=== PATIENT | female | born 1955 | race Caucasian/White ===

== ENCOUNTER 2018-06-07 15:15 | Outpatient (RCR) | payer OTHER, SELFPAY ==
--- NOTE | 2018-04-26 16:00 | PT.OIE ---
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) Stiffness of right shoulder, not elsewhere classified (04/26/18) Weakness (04/26/18) Provider Visit Care Team Role Provider Type Riya Butt DO Attending Provider Physician Primary Care Provider Specialty: Family Practice Address: [address] [place] [address], [id number] Email: [email or web address] Physical Therapy Initial Evaluation PT-OP-A Visit Information Start: 04/26/18 15:34 Freq: Status: Active Protocol: Document 04/26/18 13:45 DCW (Rec: 04/26/18 15:57 DCW [id number]) Out-Patient Physical Therapy Visit Information Visit Information Visit Type Initial Evaluation Visit Start Time 13:45 Visit Stop Time 14:30 Total Visit Minutes 45 Visit Number 1 Number of WEB FEEDER Visits 0 Evaluation Information Evaluation Date 04/26/18 PT-OP-B Current Condition Start: 04/26/18 15:34 Freq: Status: Active Protocol: Document 04/26/18 13:45 DCW (Rec: 04/26/18 15:57 DCW [id number]) Current Condition History of Current Condition Onset Date 03/08/18 Current Complaints Right UE weakness and stiffness secondary to shingles History of Current Condition Pt was diagnosed with shingles on 03/08/18. She began experiencing pain down her right arm, which was followed by weakness and immobility. Her symptoms gradually improved, and her nerve pain has gotten to the point where she is beginning to wean off of her gabapentin. She currently still has significantly limited ROM and strength in her right shoulder , and has difficulty with clinical manager , opening jars, raising her arm over her head, or lifting anything. Treatment Goals Patient/Caregiver Goals Pt goal is to improve her right arm strength and mobility Prior Functional Status Baseline Function- ADL's Independent Baseline Function- Mobility Independent Baseline Function- Other WNL Current Functional Impairments (Reported) Functional Limitations- ADL's Unable to lift objects to chest height Unable to open jars Unable to lift arm to her hair PT-OP-C Subjective Start: 04/26/18 15:34 Freq: Status: Active Protocol: Document 04/26/18 13:45 DCW (Rec: 04/26/18 15:57 DCW [id number]) Patient Questionnaires Quick Dash- Upper Extremity Quick Dash UE Score 50% Quick Dash UE Impairment 40 to 59% Impaired (Score 40- 59) OP-PT Pain Assessment Pain Assessment Grid Paper Pain Assessment Grid Completed Yes Location Right Arm Pain Location Details Entire length of arm Intensity 3 Scale Used Numeric (1 - 10) Description Dull Shooting Frequency Constant Home Pain Medication Use Pain Medications Used Yes: Gabapentin PT-OP-E Functional Tests Start: 04/26/18 15:57 Freq: Status: Active Protocol: Document 04/26/18 13:45 DCW (Rec: 04/26/18 15:59 MTW [id number]) Functional Tests Apley's Scratch Test Action 1: The subject is instructed to touch the opposite shoulder with his/her hand. This motion checks Glenohumeral adduction, internal rotation , horizontal adduction and scapular protraction Action 2: The subject is instructed to place his/her arm overhead and reach behind the neck to touch his/her upper back. This motion checks Glenohumeral abduction, external rotation and scapular upward rotation and elevation. Action 3: The subject puts his/her hand on the lower back and reaches upward as far as possible. This motion checks glenohumeral adduction, internal rotation and scapular retraction with downward rotation Action 1- Right Reach to lateral opposite shoulder Action 2- Right Reach to C7 Action 3- Right Reach to L4 PT-OP-K Range of Motion Start: 04/26/18 15:34 Freq: Status: Active Protocol: Document 04/26/18 13:45 DCW (Rec: 04/26/18 15:57 DCW [id number]) Shoulder Goniometric Range of Motion Shoulder Measured in Degrees Right Passive Shoulder ROM WFL No Testing Position Prone Flexion 170 Abduction 150 Right Active Shoulder ROM WFL No Testing Position Sitting Flexion 42 Abduction 55 Left Active Shoulder ROM WFL Yes Testing Position Sitting Shoulder ROM Limitations Shoulder ROM Limitations Muscle Weakness Elbow/Forearm Range of Motion Elbow/Forearm Measured in Degrees Right Active Elbow/Forearm ROM WFL Yes PT-OP-M Strength Start: 04/26/18 15:34 Freq: Status: Active Protocol: Document 04/26/18 13:45 DCW (Rec: 04/26/18 15:57 DCW [id number]) Shoulder Strength Shoulder Manual Muscle Testing Left Reason Not Measured WFL Right Flexion 2 Poor Abduction (C5) 2 Poor External Rotation 3 Fair Internal Rotation 3+ Fair+ Elbow/Forearm Strength Elbow and Forearm Manual Muscle Testing Left Reason Not Measured WFL Right Flexion (C6) 4 Good Pronation 4- Good- Hand Functional Support Analyst/Pinch Strength Hand Dominance Hand Dominance Right Hand Strength Right Functional Support Analyst (lbs) 45 Left Functional Support Analyst (lbs) 28 PT-OP-Q Treatments Start: 04/26/18 15:34 Freq: Status: Active Protocol: Document 04/26/18 13:45 DCW (Rec: 04/26/18 15:57 DCW [id number]) Therapeutic Exercises Standing Exercises 6 Standing Exercise Name Shoulder Abduction Side right Resistance Lv 1 Equipment Used T-band 5 Standing Exercise Name Shoulder Flexion Side right Resistance Lv 1 Equipment Used T-band 4 Standing Exercise Name Shoulder Adduction Side right Resistance Lv 1 Equipment Used T-band 3 Standing Exercise Name Shoulder Extension Side right Resistance Lv 1 Equipment Used T-band 2 Standing Exercise Name Shoulder External Rotation Side right Resistance Lv 1 Equipment Used T-band 1 Standing Exercise Name Shoulder Internal Rotation Side right Resistance Lv 1 Equipment Used T-band PT-OP-T Assessment and Plan Start: 04/26/18 15:34 Freq: Status: Active Protocol: Document 04/26/18 13:45 DCW (Rec: 04/26/18 15:57 DCW [id number]) Physical Therapy Assessment Rehab Potential Rehabilitation Potential Excellent Evaluation Complexity Number of Personal Factors/Comorbidities 0 Number of Body Systems Impaired 3 Clinical Presentation at Evaluation Stable Impairments Impairments Activity Tolerance Pain ROM Soft Tissue Mobility Strength Goals Five Impairment Apley Scratch Test Mcc Goal (LTG) Internal Rotation position to T10 External Rotation position to T4 LTG Duration 06/05/18 Four Impairment Shoulder Strength Short Term Goal (STG) R UE MMT to 3+/5 STG Duration 05/17/18 Mcc Goal (LTG) R UE MMT to 4/5 LTG Duration 06/05/18 Three Impairment Range of Motion Short Term Goal (STG) Right shoulder AROM to 90? flexion and 90? abduction STG Duration 05/17/18 Mcc Goal (LTG) Right shoulder AROM to 120? flexion and 120? 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 Luckily, pt passive ROM is WNL , which currently makes her has a lower risk for adhesive capsulitis. Pt should benefit from skilled therapy focusing on improving active ROM and strengthening. Physical Therapy Plan Frequency and Duration Frequency of Treatment 2x/Week Duration of Treatment 10 weeks Plan of Care Start Date 04/26/18 Plan of Care End Date 07/05/18 Therapeutic Interventions Therapeutic Interventions Aquatic Therapy Home Exercise Program Joint Mobilizations Manual Therapy Neuromuscular Re-education Self-Care/Home Management Soft Tissue Mobilization Taping Therapeutic Exercises Modalities Cold Pack/Ice Massage Electric Stimulation Hot Packs Ultrasound Next Visit Focus/Plan Next Note Type Treatment Note Next Visit Plan Active ROM, Strengthening Please Sign and Return: I have reviewed this Plan of Care and certify that the skilled therapy services above are required to meet the patient?s needs. Physician Signature Date Printed Name and Credentials Clinical Instructor Signature Printed Name and Credentials
--- NOTE | 2018-04-28 12:34 | PT.OTN ---
Current Diagnoses Other postherpetic nervous system involvement (04/28/18) Physical Therapy Treatment Note PT-OP-A Visit Information Start: 04/26/18 15:34 Freq: Status: Active Protocol: Document 04/28/18 12:00 DCW (Rec: 04/28/18 12:34 DCW [id number]) Out-Patient Physical Therapy Visit Information Visit Information Visit Type Treatment Note Visit Note Pt reports until she meets her insurance deductable, she is paying full rojas for her appointments. After discussing the situation, pt would appreciate 30 minute appointments instead of 45 minutes to help offset some of the costs. Visit Start Time 12:00 Visit Stop Time 12:30 Total Visit Minutes 30 Visit Number 2 Number of GRAPHIC PRODUCTION ARTIST Visits 0 Evaluation Information Evaluation Date 04/26/18 PT-OP-B Current Condition Start: 04/26/18 15:34 Freq: Status: Active Protocol: Document 04/26/18 13:45 DCW (Rec: 04/26/18 15:57 DCW [id number]) Current Condition History of Current Condition Onset Date 03/08/18 Current Complaints Right UE weakness and stiffness secondary to shingles History of Current Condition Pt was diagnosed with shingles on 03/08/18. She began experiencing pain down her right arm, which was followed by weakness and immobility. Her symptoms gradually improved, and her nerve pain has gotten to the point where she is beginning to wean off of her gabapentin. She currently still has significantly limited ROM and strength in her right shoulder , and has difficulty with metal fabricating supervisor , opening jars, raising her arm over her head, or lifting anything. Treatment Goals Patient/Caregiver Goals Pt goal is to improve her right arm strength and mobility Prior Functional Status Baseline Function- ADL's Independent Baseline Function- Mobility Independent Baseline Function- Other WNL Current Functional Impairments (Reported) Functional Limitations- ADL's Unable to lift objects to chest height Unable to open jars Unable to lift arm to her hair PT-OP-C Subjective Start: 04/26/18 15:34 Freq: Status: Active Protocol: Document 04/28/18 12:00 DCW (Rec: 04/28/18 12:34 DCW [id number]) OP-PT Subjective Patient Comments Patient Comments Pt reports her arm as been more tired recently, but I think that's okay. PT-OP-Q Treatments Start: 04/26/18 15:34 Freq: Status: Active Protocol: Document 04/28/18 12:00 DCW (Rec: 04/28/18 12:34 DCW [id number]) Cardio Equipment Upper Body Ergometer (UBE) Duration (Minutes) 5 RPM 60 Seat Position 11 Height 2.5 Gym Equipment Therapeutic Ball 1 Exercise Details Ball walk up wall Ball Size/Color Small Purple Body Position Standing Comments Flexion and Abduction Therapeutic Exercises Sitting Exercises 1 Sitting Exercise Name Tanay GH Flexion/Abduction/ Internal Rotation Equipment Used Tanya Standing Exercises 7 Standing Exercise Name UE Resisted side-stepping along rail Side bilateral Resistance Yellow Equipment Used T-band PT-OP-T Assessment and Plan Start: 04/26/18 15:34 Freq: Status: Active Protocol: Document 04/28/18 12:00 DCW (Rec: 04/28/18 12:34 DCW [id number]) Physical Therapy Assessment Impairments Impairments Activity Tolerance Pain ROM Soft Tissue Mobility Strength Goals Five Impairment Apley Scratch Test Rehab Aid Goal (LTG) Internal Rotation position to T10 External Rotation position to T4 LTG Duration 06/05/18 Four Impairment Shoulder Strength Short Term Goal (STG) R UE MMT to 3+/5 STG Duration 05/17/18 Rehab Aid Goal (LTG) R UE MMT to 4/5 LTG Duration 06/05/18 Three Impairment Range of Motion Short Term Goal (STG) Right shoulder AROM to 90? flexion and 90? abduction STG Duration 05/17/18 Rehab Aid Goal (LTG) Right shoulder AROM to 120? flexion and 120? 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 Pt should continue to improve with a decrease in PT frequency to help keep her costs down. Physical Therapy Plan Frequency and Duration Frequency of Treatment 2x/Week Duration of Treatment 10 weeks Plan of Care Start Date 04/26/18 Plan of Care End Date 07/05/18 Therapeutic Interventions Therapeutic Interventions Aquatic Therapy Home Exercise Program Joint Mobilizations Manual Therapy Neuromuscular Re-education Self-Care/Home Management Soft Tissue Mobilization Taping Therapeutic Exercises Modalities Cold Pack/Ice Massage Electric Stimulation Hot Packs Ultrasound Next Visit Focus/Plan Next Note Type Treatment Note Next Visit Plan Active ROM, Strengthening Please Sign and Return: I have reviewed this Plan of Care and certify that the skilled therapy services above are required to meet the patient?s needs. Physician Signature Date Printed Name and Credentials Clinical Instructor Signature Printed Name and Credentials
--- NOTE | 2018-05-03 08:56 | PT.OTN ---
Current Diagnoses Other postherpetic nervous system involvement (05/03/18) Physical Therapy Treatment Note PT-OP-A Visit Information Start: 04/26/18 15:34 Freq: Status: Active Protocol: Document 05/03/18 08:19 [facility] (Rec: 05/03/18 08:56 [facility] [id number]) Out-Patient Physical Therapy Visit Information Visit Information Visit Type Treatment Note Visit Note Pt reports until she meets her insurance deductable, she is paying full rojas for her appointments. After discussing the situation, pt would appreciate 30 minute appointments instead of 45 minutes to help offset some of the costs. Visit Start Time 08:15 Visit Stop Time 08:50 Total Visit Minutes 35 Visit Number 3 Number of WELFARE SPECIALIST Visits 0 PT-OP-B Current Condition Start: 04/26/18 15:34 Freq: Status: Active Protocol: Document 04/26/18 13:45 DCW (Rec: 04/26/18 15:57 DCW [id number]) Current Condition History of Current Condition Onset Date 03/08/18 Current Complaints Right UE weakness and stiffness secondary to shingles History of Current Condition Pt was diagnosed with shingles on 03/08/18. She began experiencing pain down her right arm, which was followed by weakness and immobility. Her symptoms gradually improved, and her nerve pain has gotten to the point where she is beginning to wean off of her gabapentin. She currently still has significantly limited ROM and strength in her right shoulder , and has difficulty with structural engineering drafting officer , opening jars, raising her arm over her head, or lifting anything. Treatment Goals Patient/Caregiver Goals Pt goal is to improve her right arm strength and mobility Prior Functional Status Baseline Function- ADL's Independent Baseline Function- Mobility Independent Baseline Function- Other WNL Current Functional Impairments (Reported) Functional Limitations- ADL's Unable to lift objects to chest height Unable to open jars Unable to lift arm to her hair PT-OP-C Subjective Start: 04/26/18 15:34 Freq: Status: Active Protocol: Document 05/03/18 08:19 [facility] (Rec: 05/03/18 08:56 [facility] [id number]) OP-PT Subjective Patient Comments Patient Comments Compliance with HEP 2x/day most days. PT-OP-E Functional Tests Start: 04/26/18 15:57 Freq: Status: Active Protocol: Document 04/26/18 13:45 DCW (Rec: 04/26/18 15:59 DCW [id number]) Functional Tests Apley's Scratch Test Action 1: The subject is instructed to touch the opposite shoulder with his/her hand. This motion checks Glenohumeral adduction, internal rotation , horizontal adduction and scapular protraction Action 2: The subject is instructed to place his/her arm overhead and reach behind the neck to touch his/her upper back. This motion checks Glenohumeral abduction, external rotation and scapular upward rotation and elevation. Action 3: The subject puts his/her hand on the lower back and reaches upward as far as possible. This motion checks glenohumeral adduction, internal rotation and scapular retraction with downward rotation Action 1- Right Reach to lateral opposite shoulder Action 2- Right Reach to C7 Action 3- Right Reach to L4 PT-OP-K Range of Motion Start: 04/26/18 15:34 Freq: Status: Active Protocol: Document 04/26/18 13:45 DCW (Rec: 04/26/18 15:57 [facility] [id number]) Shoulder Goniometric Range of Motion Shoulder Measured in Degrees Right Passive Shoulder ROM WFL No Testing Position Prone Flexion 170 Abduction 150 Right Active Shoulder ROM WFL No Testing Position Sitting Flexion 42 Abduction 55 Left Active Shoulder ROM WFL Yes Testing Position Sitting Shoulder ROM Limitations Shoulder ROM Limitations Muscle Weakness Elbow/Forearm Range of Motion Elbow/Forearm Measured in Degrees Right Active Elbow/Forearm ROM WFL Yes PT-OP-M Strength Start: 04/26/18 15:34 Freq: Status: Active Protocol: Document 04/26/18 13:45 DCW (Rec: 04/26/18 15:57 [facility] [id number]) Shoulder Strength Shoulder Manual Muscle Testing Left Reason Not Measured WFL Right Flexion 2 Poor Abduction (C5) 2 Poor External Rotation 3 Fair Internal Rotation 3+ Fair+ Elbow/Forearm Strength Elbow and Forearm Manual Muscle Testing Left Reason Not Measured WFL Right Flexion (C6) 4 Good Pronation 4- Good- Hand Lining Closer/Pinch Strength Hand Dominance Hand Dominance Right Hand Strength Right Lining Closer (lbs) 45 Left Lining Closer (lbs) 28 PT-OP-Q Treatments Start: 04/26/18 15:34 Freq: Status: Active Protocol: Document 05/03/18 08:19 [facility] (Rec: 05/03/18 08:56 [facility] [id number]) Cardio Equipment Upper Body Ergometer (UBE) Duration (Minutes) 5 RPM 60 Seat Position 11 Height 4 Therapeutic Exercises Supine Exercises 2 Supine Exercise Name Habd/add w/tbar 1 Supine Exercise Name serratus punch Resistance 20 Reps/Minutes 1# Sidelying Exercises 1 Sidelying Exercise Name abd to 90 Reps/Minutes 15 Sitting Exercises 3 Sitting Exercise Name UT stretch Reps/Minutes 30 sec 2 Sitting Exercise Name LS stretch Reps/Minutes 30 sec hold Standing Exercises 5 Standing Exercise Name Shoulder Flexion Side right Resistance Lv 1 Equipment Used T-band 4 Standing Exercise Name Shoulder Adduction Side right Resistance Lv 1 Equipment Used T-band Manual Therapy Treatment Joint Mobilizations 1 Joint GH Direction distraction, inf, post Grade III Manual Techniques 1 Type post depression COI PNF Comments scapula PT-OP-T Assessment and Plan Start: 04/26/18 15:34 Freq: Status: Active Protocol: Document 05/03/18 08:19 [facility] (Rec: 05/03/18 08:56 [facility] [id number]) Physical Therapy Assessment Goals Five Impairment Apley Scratch Test Fdc Goal (LTG) Internal Rotation position to T10 External Rotation position to T4 LTG Duration 06/05/18 Four Impairment Shoulder Strength Short Term Goal (STG) R UE MMT to 3+/5 STG Duration 05/17/18 Welfare Specialist Goal (LTG) R UE MMT to 4/5 LTG Duration 06/05/18 Three Impairment Range of Motion Short Term Goal (STG) Right shoulder AROM to 90? flexion and 90? abduction STG Duration 05/17/18 Fdc Goal (LTG) Right shoulder AROM to 120? flexion and 120? abduction LTG Duration 06/05/18 Two Impairment Lining Closer Strength Welfare Specialist Goal (LTG) Right structural engineering drafting officer strength to 40 lbs LTG Duration 06/05/18 One Impairment Activity Participation Short Term Goal (STG) Pt to report ability to open jars with no difficulty STG Duration 05/17/18 Fdc Goal (LTG) Pt to use right hand to perform hair care LTG Duration 06/05/18 Assessment Summary Assessment Improved range without pain after manual rx. Pt able to tolerate increase in strengthening. Physical Therapy Plan Frequency and Duration Frequency of Treatment 2x/Week Duration of Treatment 10 weeks Plan of Care Start Date 04/26/18 Plan of Care End Date 07/05/18 Next Visit Focus/Plan Next Note Type Treatment Note Next Visit Plan Active ROM, Strengthening
--- NOTE | 2018-05-11 14:18 | PT.OTN ---
Current Diagnoses Other postherpetic nervous system involvement (05/11/18) Physical Therapy Treatment Note PT-OP-A Visit Information Start: 04/26/18 15:34 Freq: Status: Active Protocol: Document 05/11/18 13:45 DCW (Rec: 05/11/18 14:17 DCW [id number]) Out-Patient Physical Therapy Visit Information Visit Information Visit Type Treatment Note Visit Note Pt reports until she meets her insurance deductable, she is paying full rojas for her appointments. After discussing the situation, pt would appreciate 30 minute appointments instead of 45 minutes to help offset some of the costs. Visit Start Time 13:45 Visit Stop Time 15:00 Total Visit Minutes 30 Visit Number 4 Number of PHYSICIAN COMPENSATION ANALYST Visits 0 Evaluation Information Evaluation Date 04/26/18 PT-OP-B Current Condition Start: 04/26/18 15:34 Freq: Status: Active Protocol: Document 04/26/18 13:45 DCW (Rec: 04/26/18 15:57 DCW [id number]) Current Condition History of Current Condition Onset Date 03/08/18 Current Complaints Right UE weakness and stiffness secondary to shingles History of Current Condition Pt was diagnosed with shingles on 03/08/18. She began experiencing pain down her right arm, which was followed by weakness and immobility. Her symptoms gradually improved, and her nerve pain has gotten to the point where she is beginning to wean off of her gabapentin. She currently still has significantly limited ROM and strength in her right shoulder , and has difficulty with cytopathologist , opening jars, raising her arm over her head, or lifting anything. Treatment Goals Patient/Caregiver Goals Pt goal is to improve her right arm strength and mobility Prior Functional Status Baseline Function- ADL's Independent Baseline Function- Mobility Independent Baseline Function- Other WNL Current Functional Impairments (Reported) Functional Limitations- ADL's Unable to lift objects to chest height Unable to open jars Unable to lift arm to her hair PT-OP-C Subjective Start: 04/26/18 15:34 Freq: Status: Active Protocol: Document 05/11/18 13:45 DCW (Rec: 05/11/18 14:17 DCW [id number]) OP-PT Subjective Patient Comments Patient Comments Pt reports she is off her Gabapentin now, but has been feeling really stiff at night. Does also note that she has been getting her arm up above her head, which is a big improvement from where we started. PT-OP-E Functional Tests Start: 04/26/18 15:57 Freq: Status: Active Protocol: Document 04/26/18 13:45 DCW (Rec: 04/26/18 15:59 DCW [id number]) Functional Tests Apley's Scratch Test Action 1: The subject is instructed to touch the opposite shoulder with his/her hand. This motion checks Glenohumeral adduction, internal rotation , horizontal adduction and scapular protraction Action 2: The subject is instructed to place his/her arm overhead and reach behind the neck to touch his/her upper back. This motion checks Glenohumeral abduction, external rotation and scapular upward rotation and elevation. Action 3: The subject puts his/her hand on the lower back and reaches upward as far as possible. This motion checks glenohumeral adduction, internal rotation and scapular retraction with downward rotation Action 1- Right Reach to lateral opposite shoulder Action 2- Right Reach to C7 Action 3- Right Reach to L4 PT-OP-K Range of Motion Start: 04/26/18 15:34 Freq: Status: Active Protocol: Document 04/26/18 13:45 DCW (Rec: 04/26/18 15:57 DCW [id number]) Shoulder Goniometric Range of Motion Shoulder Measured in Degrees Right Passive Shoulder ROM WFL No Testing Position Prone Flexion 170 Abduction 150 Right Active Shoulder ROM WFL No Testing Position Sitting Flexion 42 Abduction 55 Left Active Shoulder ROM WFL Yes Testing Position Sitting Shoulder ROM Limitations Shoulder ROM Limitations Muscle Weakness Elbow/Forearm Range of Motion Elbow/Forearm Measured in Degrees Right Active Elbow/Forearm ROM WFL Yes PT-OP-M Strength Start: 04/26/18 15:34 Freq: Status: Active Protocol: Document 04/26/18 13:45 DCW (Rec: 04/26/18 15:57 DCW [id number]) Shoulder Strength Shoulder Manual Muscle Testing Left Reason Not Measured WFL Right Flexion 2 Poor Abduction (C5) 2 Poor External Rotation 3 Fair Internal Rotation 3+ Fair+ Elbow/Forearm Strength Elbow and Forearm Manual Muscle Testing Left Reason Not Measured WFL Right Flexion (C6) 4 Good Pronation 4- Good- Hand Runstitching Machine Operator/Pinch Strength Hand Dominance Hand Dominance Right Hand Strength Right Runstitching Machine Operator (lbs) 45 Left Runstitching Machine Operator (lbs) 28 PT-OP-Q Treatments Start: 04/26/18 15:34 Freq: Status: Active Protocol: Document 05/11/18 13:45 DCW (Rec: 05/11/18 14:17 DCW [id number]) Cardio Equipment Upper Body Ergometer (UBE) Duration (Minutes) 5 RPM 60 Seat Position 11 Height 4 Gym Equipment Shuttle Rebound 1 Exercise Details Green ball toss Reps/Duration 4' Therapeutic Ball 1 Exercise Details Ball walk up wall Ball Size/Color Small Purple Body Position Standing Comments Flexion and Abduction Therapeutic Exercises Sitting Exercises 1 Sitting Exercise Name Tanya GH Flexion/Abduction/ Internal Rotation Equipment Used Tanya Standing Exercises 8 Standing Exercise Name Shoulder press Side bilateral Resistance 5# Equipment Used Wand 5 Standing Exercise Name Shoulder Flexion Side bilateral Resistance 5# Equipment Used Wand Manual Therapy Treatment Joint Mobilizations 1 Joint GH Direction distraction, inf, post Grade III Manual Techniques 2 Type Passive ROM stretching of GH joint Body Position Sitting PT-OP-T Assessment and Plan Start: 04/26/18 15:34 Freq: Status: Active Protocol: Document 05/11/18 13:45 DCW (Rec: 05/11/18 14:17 DCW [id number]) Physical Therapy Assessment Impairments Impairments Activity Tolerance Pain ROM Soft Tissue Mobility Strength Goals Five Impairment Apley Scratch Test Shelter Goal (LTG) Internal Rotation position to T10 External Rotation position to T4 LTG Duration 06/05/18 Four Impairment Shoulder Strength Short Term Goal (STG) R UE MMT to 3+/5 STG Duration 05/17/18 Shelter Goal (LTG) R UE MMT to 4/5 LTG Duration 06/05/18 Three Impairment Range of Motion Short Term Goal (STG) Right shoulder AROM to 90? flexion and 90? abduction STG Duration 05/17/18 Etcher Hand Goal (LTG) Right shoulder AROM to 120? flexion and 120? abduction LTG Duration 06/05/18 Two Impairment Runstitching Machine Operator Strength Shelter Goal (LTG) Right cytopathologist strength to 40 lbs LTG Duration 06/05/18 One Impairment Activity Participation Short Term Goal (STG) Pt to report ability to open jars with no difficulty STG Duration 05/17/18 Shelter Goal (LTG) Pt to use right hand to perform hair care LTG Duration 06/05/18 Assessment Summary Assessment Pt presents again with much imptoved ROM, and tolerated increased weight during TherEx , although still noticeably weaker in R shoulder vs L Physical Therapy Plan Frequency and Duration Frequency of Treatment 2x/Week Duration of Treatment 10 weeks Plan of Care Start Date 04/26/18 Plan of Care End Date 07/05/18 Therapeutic Interventions Therapeutic Interventions Aquatic Therapy Home Exercise Program Joint Mobilizations Manual Therapy Neuromuscular Re-education Self-Care/Home Management Soft Tissue Mobilization Taping Therapeutic Exercises Modalities Cold Pack/Ice Massage Electric Stimulation Hot Packs Ultrasound Next Visit Focus/Plan Next Note Type Treatment Note Next Visit Plan Continue current POC, Advance as tolerated
--- NOTE | 2018-05-18 14:18 | PT.OTN ---
Current Diagnoses Other postherpetic nervous system involvement (05/18/18) Physical Therapy Treatment Note PT-OP-A Visit Information Start: 04/26/18 15:34 Freq: Status: Active Protocol: Document 05/18/18 13:45 DCW (Rec: 05/18/18 14:18 DCW [id number]) Out-Patient Physical Therapy Visit Information Visit Information Visit Type Treatment Note Visit Note Pt reports until she meets her insurance deductable, she is paying full rojas for her appointments. After discussing the situation, pt would appreciate 30 minute appointments instead of 45 minutes to help offset some of the costs. Visit Start Time 13:45 Visit Stop Time 14:20 Total Visit Minutes 35 Visit Number 5 Number of SAND BOBBER Visits 0 Evaluation Information Evaluation Date 04/26/18 PT-OP-B Current Condition Start: 04/26/18 15:34 Freq: Status: Active Protocol: Document 04/26/18 13:45 DCW (Rec: 04/26/18 15:57 DCW [id number]) Current Condition History of Current Condition Onset Date 03/08/18 Current Complaints Right UE weakness and stiffness secondary to shingles History of Current Condition Pt was diagnosed with shingles on 03/08/18. She began experiencing pain down her right arm, which was followed by weakness and immobility. Her symptoms gradually improved, and her nerve pain has gotten to the point where she is beginning to wean off of her gabapentin. She currently still has significantly limited ROM and strength in her right shoulder , and has difficulty with treasury consultant , opening jars, raising her arm over her head, or lifting anything. Treatment Goals Patient/Caregiver Goals Pt goal is to improve her right arm strength and mobility Prior Functional Status Baseline Function- ADL's Independent Baseline Function- Mobility Independent Baseline Function- Other WNL Current Functional Impairments (Reported) Functional Limitations- ADL's Unable to lift objects to chest height Unable to open jars Unable to lift arm to her hair PT-OP-C Subjective Start: 04/26/18 15:34 Freq: Status: Active Protocol: Document 05/18/18 13:45 DCW (Rec: 05/18/18 14:18 DCW [id number]) OP-PT Subjective Patient Comments Patient Comments Pt excitedly reports her shoulder is doing much better, demonstrates increased ROM with minimal pain in both flexion and extension. PT-OP-E Functional Tests Start: 04/26/18 15:57 Freq: Status: Active Protocol: Document 04/26/18 13:45 DCW (Rec: 04/26/18 15:59 DCW [id number]) Functional Tests Apley's Scratch Test Action 1: The subject is instructed to touch the opposite shoulder with his/her hand. This motion checks Glenohumeral adduction, internal rotation , horizontal adduction and scapular protraction Action 2: The subject is instructed to place his/her arm overhead and reach behind the neck to touch his/her upper back. This motion checks Glenohumeral abduction, external rotation and scapular upward rotation and elevation. Action 3: The subject puts his/her hand on the lower back and reaches upward as far as possible. This motion checks glenohumeral adduction, internal rotation and scapular retraction with downward rotation Action 1- Right Reach to lateral opposite shoulder Action 2- Right Reach to C7 Action 3- Right Reach to L4 PT-OP-K Range of Motion Start: 04/26/18 15:34 Freq: Status: Active Protocol: Document 04/26/18 13:45 DCW (Rec: 04/26/18 15:57 ILW [id number]) Shoulder Goniometric Range of Motion Shoulder Measured in Degrees Right Passive Shoulder ROM WFL No Testing Position Prone Flexion 170 Abduction 150 Right Active Shoulder ROM WFL No Testing Position Sitting Flexion 42 Abduction 55 Left Active Shoulder ROM WFL Yes Testing Position Sitting Shoulder ROM Limitations Shoulder ROM Limitations Muscle Weakness Elbow/Forearm Range of Motion Elbow/Forearm Measured in Degrees Right Active Elbow/Forearm ROM WFL Yes PT-OP-M Strength Start: 04/26/18 15:34 Freq: Status: Active Protocol: Document 04/26/18 13:45 DCW (Rec: 04/26/18 15:57 ILW [id number]) Shoulder Strength Shoulder Manual Muscle Testing Left Reason Not Measured WFL Right Flexion 2 Poor Abduction (C5) 2 Poor External Rotation 3 Fair Internal Rotation 3+ Fair+ Elbow/Forearm Strength Elbow and Forearm Manual Muscle Testing Left Reason Not Measured WFL Right Flexion (C6) 4 Good Pronation 4- Good- Hand Metalworking Specialist/Pinch Strength Hand Dominance Hand Dominance Right Hand Strength Right Metalworking Specialist (lbs) 45 Left Metalworking Specialist (lbs) 28 PT-OP-Q Treatments Start: 04/26/18 15:34 Freq: Status: Active Protocol: Document 05/18/18 13:45 DCW (Rec: 05/18/18 14:18 DCW [id number]) Cardio Equipment Upper Body Ergometer (UBE) Duration (Minutes) 5 RPM 60 Seat Position 11 Height 4 Therapeutic Exercises Sitting Exercises 1 Sitting Exercise Name Tanya GH Flexion/Abduction/ Internal Rotation Equipment Used Tanya Standing Exercises 9 Standing Exercise Name Shoulder Abduction Side bilateral Resistance 3# Equipment Used dumbells 8 Standing Exercise Name Shoulder press Side bilateral Resistance 5# Equipment Used Wand 5 Standing Exercise Name Shoulder Flexion Side bilateral Resistance 5# Equipment Used Wand Manual Therapy Treatment Joint Mobilizations 1 Joint GH Direction distraction, inf, post Grade III Manual Techniques 2 Type Passive ROM stretching of GH joint Body Position Sitting PT-OP-T Assessment and Plan Start: 04/26/18 15:34 Freq: Status: Active Protocol: Document 05/18/18 13:45 DCW (Rec: 05/18/18 14:18 DCW [id number]) Physical Therapy Assessment Impairments Impairments Activity Tolerance Pain ROM Soft Tissue Mobility Strength Goals Five Impairment Apley Scratch Test Assisted Goal (LTG) Internal Rotation position to T10 External Rotation position to T4 LTG Duration 06/05/18 Four Impairment Shoulder Strength Short Term Goal (STG) R UE MMT to 3+/5 STG Duration 05/17/18 Client Account Manager Goal (LTG) R UE MMT to 4/5 LTG Duration 06/05/18 Three Impairment Range of Motion Short Term Goal (STG) Right shoulder AROM to 90? flexion and 90? abduction STG Duration 05/17/18 Assisted Goal (LTG) Right shoulder AROM to 120? flexion and 120? abduction LTG Duration 06/05/18 Two Impairment Metalworking Specialist Strength Assisted Goal (LTG) Right treasury consultant strength to 40 lbs LTG Duration 06/05/18 One Impairment Activity Participation Short Term Goal (STG) Pt to report ability to open jars with no difficulty STG Duration 05/17/18 Client Account Manager Goal (LTG) Pt to use right hand to perform hair care LTG Duration 06/05/18 Assessment Summary Assessment Pt continues to improve with ROM and pain-control, demonstrating improved R shoulder strength vs gravity. Continued skilled therapy should focus on end-range stretching and strengthening. Physical Therapy Plan Frequency and Duration Frequency of Treatment 2x/Week Duration of Treatment 10 weeks Plan of Care Start Date 04/26/18 Plan of Care End Date 07/05/18 Therapeutic Interventions Therapeutic Interventions Aquatic Therapy Home Exercise Program Joint Mobilizations Manual Therapy Neuromuscular Re-education Self-Care/Home Management Soft Tissue Mobilization Taping Therapeutic Exercises Modalities Cold Pack/Ice Massage Electric Stimulation Hot Packs Ultrasound Next Visit Focus/Plan Next Note Type Treatment Note Next Visit Plan Continue current POC, Advance as tolerated
--- NOTE | 2018-05-23 17:23 | PT.OTN ---
Current Diagnoses Other postherpetic nervous system involvement (05/23/18) Physical Therapy Treatment Note PT-OP-A Visit Information Start: 04/26/18 15:34 Freq: Status: Active Protocol: Document 05/23/18 16:45 DCW (Rec: 05/23/18 17:23 DCW [id number]) Out-Patient Physical Therapy Visit Information Visit Information Visit Type Treatment Note Visit Note Pt reports until she meets her insurance deductable, she is paying full rojas for her appointments. After discussing the situation, pt would appreciate 30 minute appointments instead of 45 minutes to help offset some of the costs. Visit Start Time 16:45 Visit Stop Time 17:20 Total Visit Minutes 35 Visit Number 6 Number of SOCIAL AND HUMAN SERVICES ASSISTANT Visits 0 Evaluation Information Evaluation Date 04/26/18 PT-OP-B Current Condition Start: 04/26/18 15:34 Freq: Status: Active Protocol: Document 04/26/18 13:45 DCW (Rec: 04/26/18 15:57 DCW [id number]) Current Condition History of Current Condition Onset Date 03/08/18 Current Complaints Right UE weakness and stiffness secondary to shingles History of Current Condition Pt was diagnosed with shingles on 03/08/18. She began experiencing pain down her right arm, which was followed by weakness and immobility. Her symptoms gradually improved, and her nerve pain has gotten to the point where she is beginning to wean off of her gabapentin. She currently still has significantly limited ROM and strength in her right shoulder , and has difficulty with entry level sales associate , opening jars, raising her arm over her head, or lifting anything. Treatment Goals Patient/Caregiver Goals Pt goal is to improve her right arm strength and mobility Prior Functional Status Baseline Function- ADL's Independent Baseline Function- Mobility Independent Baseline Function- Other WNL Current Functional Impairments (Reported) Functional Limitations- ADL's Unable to lift objects to chest height Unable to open jars Unable to lift arm to her hair PT-OP-C Subjective Start: 04/26/18 15:34 Freq: Status: Active Protocol: Document 05/23/18 16:45 DCW (Rec: 05/23/18 17:23 DCW [id number]) OP-PT Subjective Patient Comments Patient Comments Pt continues to experience improvement in both strength and mobililty. PT-OP-E Functional Tests Start: 04/26/18 15:57 Freq: Status: Active Protocol: Document 04/26/18 13:45 DCW (Rec: 04/26/18 15:59 DCW [id number]) Functional Tests Apley's Scratch Test Action 1: The subject is instructed to touch the opposite shoulder with his/her hand. This motion checks Glenohumeral adduction, internal rotation , horizontal adduction and scapular protraction Action 2: The subject is instructed to place his/her arm overhead and reach behind the neck to touch his/her upper back. This motion checks Glenohumeral abduction, external rotation and scapular upward rotation and elevation. Action 3: The subject puts his/her hand on the lower back and reaches upward as far as possible. This motion checks glenohumeral adduction, internal rotation and scapular retraction with downward rotation Action 1- Right Reach to lateral opposite shoulder Action 2- Right Reach to C7 Action 3- Right Reach to L4 PT-OP-K Range of Motion Start: 04/26/18 15:34 Freq: Status: Active Protocol: Document 05/23/18 16:45 DCW (Rec: 05/23/18 16:52 DCW [id number]) Shoulder Goniometric Range of Motion Shoulder Measured in Degrees Right Passive Shoulder ROM WFL No Testing Position Sitting Flexion 170 Abduction 180 Right Active Shoulder ROM WFL No Testing Position Sitting Flexion 114 Abduction 148 PT-OP-M Strength Start: 04/26/18 15:34 Freq: Status: Active Protocol: Document 05/23/18 16:45 DCW (Rec: 05/23/18 16:54 DCW [id number]) Shoulder Strength Shoulder Manual Muscle Testing Right Flexion 4- Good- Abduction (C5) 4- Good- External Rotation 3+ Fair+ Internal Rotation 4 Good PT-OP-Q Treatments Start: 04/26/18 15:34 Freq: Status: Active Protocol: Document 05/23/18 16:45 DCW (Rec: 05/23/18 17:23 DCW [id number]) Cardio Equipment Upper Body Ergometer (UBE) Duration (Minutes) 5 RPM 60 Seat Position 11 Height 5 Gym Equipment Shuttle Rebound 1 Exercise Details Green ball toss Reps/Duration 4' Therapeutic Exercises Standing Exercises 9 Standing Exercise Name Shoulder Abduction Side bilateral Resistance 5# Equipment Used dumbells 8 Standing Exercise Name Shoulder press Side bilateral Resistance 10# Equipment Used Wand 5 Standing Exercise Name Shoulder Flexion Side bilateral Resistance 10# Equipment Used Wand Manual Therapy Treatment Joint Mobilizations 1 Joint GH Direction distraction, inf, post Grade III Manual Techniques 2 Type Passive ROM stretching of GH joint Body Position Sitting PT-OP-T Assessment and Plan Start: 04/26/18 15:34 Freq: Status: Active Protocol: Document 05/23/18 16:45 DCW (Rec: 05/23/18 17:23 DCW [id number]) Physical Therapy Assessment Impairments Impairments Activity Tolerance Pain ROM Soft Tissue Mobility Strength Goals Five Impairment Apley Scratch Test Medical Biller Goal (LTG) Internal Rotation position to T10 External Rotation position to T4 LTG Duration 06/05/18 Four Impairment Shoulder Strength Short Term Goal (STG) R UE MMT to 3+/5 STG Duration Met Half-Way Goal (LTG) R UE MMT to 4/5 LTG Duration 06/05/18 Three Impairment Range of Motion Short Term Goal (STG) Right shoulder AROM to 90? flexion and 90? abduction STG Duration Met Medical Biller Goal (LTG) Right shoulder AROM to 120? flexion and 120? abduction LTG Duration 06/05/18 Two Impairment Buyer Tobacco Head Strength Half-Way Goal (LTG) Right entry level sales associate strength to 40 lbs LTG Duration 06/05/18 One Impairment Activity Participation Short Term Goal (STG) Pt to report ability to open jars with no difficulty STG Duration 05/17/18 Half-Way Goal (LTG) Pt to use right hand to perform hair care LTG Duration 06/05/18 Assessment Summary Assessment Pt exhibited excellent improvement with ROM and strength, particularly improving from 55 degrees to 148 degrees in abduction, and 42 to 114 degrees flexion. Physical Therapy Plan Frequency and Duration Frequency of Treatment 2x/Week Duration of Treatment 10 weeks Plan of Care Start Date 04/26/18 Plan of Care End Date 07/05/18 Therapeutic Interventions Therapeutic Interventions Aquatic Therapy Home Exercise Program Joint Mobilizations Manual Therapy Neuromuscular Re-education Self-Care/Home Management Soft Tissue Mobilization Taping Therapeutic Exercises Modalities Cold Pack/Ice Massage Electric Stimulation Hot Packs Ultrasound Next Visit Focus/Plan Next Note Type Treatment Note Next Visit Plan Continue current POC, Advance as tolerated
--- NOTE | 2018-06-02 14:21 | PT.OTN ---
Current Diagnoses Other postherpetic nervous system involvement (06/02/18) Physical Therapy Treatment Note PT-OP-A Visit Information Start: 04/26/18 15:34 Freq: Status: Active Protocol: Document 06/02/18 13:45 DCW (Rec: 06/02/18 14:21 DCW [id number]) Out-Patient Physical Therapy Visit Information Visit Information Visit Type Treatment Note Visit Note Pt reports until she meets her insurance deductable, she is paying full rojas for her appointments. After discussing the situation, pt would appreciate 30 minute appointments instead of 45 minutes to help offset some of the costs. Visit Start Time 13:45 Visit Stop Time 14:20 Total Visit Minutes 35 Visit Number 7 Number of CYBER OPS PLANNER Visits 0 Evaluation Information Evaluation Date 04/26/18 PT-OP-B Current Condition Start: 04/26/18 15:34 Freq: Status: Active Protocol: Document 04/26/18 13:45 DCW (Rec: 04/26/18 15:57 DCW [id number]) Current Condition History of Current Condition Onset Date 03/08/18 Current Complaints Right UE weakness and stiffness secondary to shingles History of Current Condition Pt was diagnosed with shingles on 03/08/18. She began experiencing pain down her right arm, which was followed by weakness and immobility. Her symptoms gradually improved, and her nerve pain has gotten to the point where she is beginning to wean off of her gabapentin. She currently still has significantly limited ROM and strength in her right shoulder , and has difficulty with chief lock tender operator , opening jars, raising her arm over her head, or lifting anything. Treatment Goals Patient/Caregiver Goals Pt goal is to improve her right arm strength and mobility Prior Functional Status Baseline Function- ADL's Independent Baseline Function- Mobility Independent Baseline Function- Other WNL Current Functional Impairments (Reported) Functional Limitations- ADL's Unable to lift objects to chest height Unable to open jars Unable to lift arm to her hair PT-OP-C Subjective Start: 04/26/18 15:34 Freq: Status: Active Protocol: Document 06/02/18 13:45 DCW (Rec: 06/02/18 14:21 DCW [id number]) OP-PT Subjective Patient Comments Patient Comments Pt still doing very well, notes improved ROM. PT-OP-E Functional Tests Start: 04/26/18 15:57 Freq: Status: Active Protocol: Document 04/26/18 13:45 DCW (Rec: 04/26/18 15:59 DCW [id number]) Functional Tests Apley's Scratch Test Action 1: The subject is instructed to touch the opposite shoulder with his/her hand. This motion checks Glenohumeral adduction, internal rotation , horizontal adduction and scapular protraction Action 2: The subject is instructed to place his/her arm overhead and reach behind the neck to touch his/her upper back. This motion checks Glenohumeral abduction, external rotation and scapular upward rotation and elevation. Action 3: The subject puts his/her hand on the lower back and reaches upward as far as possible. This motion checks glenohumeral adduction, internal rotation and scapular retraction with downward rotation Action 1- Right Reach to lateral opposite shoulder Action 2- Right Reach to C7 Action 3- Right Reach to L4 PT-OP-K Range of Motion Start: 04/26/18 15:34 Freq: Status: Active Protocol: Document 05/23/18 16:45 DCW (Rec: 05/23/18 16:52 DCW [id number]) Shoulder Goniometric Range of Motion Shoulder Measured in Degrees Right Passive Shoulder ROM WFL No Testing Position Sitting Flexion 170 Abduction 180 Right Active Shoulder ROM WFL No Testing Position Sitting Flexion 114 Abduction 148 PT-OP-M Strength Start: 04/26/18 15:34 Freq: Status: Active Protocol: Document 05/23/18 16:45 DCW (Rec: 05/23/18 16:54 DCW [id number]) Shoulder Strength Shoulder Manual Muscle Testing Right Flexion 4- Good- Abduction (C5) 4- Good- External Rotation 3+ Fair+ Internal Rotation 4 Good PT-OP-Q Treatments Start: 04/26/18 15:34 Freq: Status: Active Protocol: Document 06/02/18 13:45 DCW (Rec: 06/02/18 14:21 DCW [id number]) Cardio Equipment Upper Body Ergometer (UBE) Duration (Minutes) 5 RPM 60 Seat Position 11 Height 5 Other Right arm only Gym Equipment Shuttle Rebound 1 Exercise Details Green ball toss Reps/Duration 4' Therapeutic Exercises Sitting Exercises 1 Sitting Exercise Name Tanya GH Flexion/Abduction/ Internal Rotation Equipment Used Tanya Standing Exercises 9 Standing Exercise Name Shoulder Abduction Side bilateral Resistance 5# Equipment Used dumbells 8 Standing Exercise Name Shoulder press Side bilateral Resistance 10# Equipment Used Wand 5 Standing Exercise Name Shoulder Flexion Side bilateral Resistance 10# Equipment Used Wand Manual Therapy Treatment Joint Mobilizations 1 Joint GH Direction distraction, inf, post Grade III Manual Techniques 2 Type Passive ROM stretching of GH joint Body Position Sitting PT-OP-T Assessment and Plan Start: 04/26/18 15:34 Freq: Status: Active Protocol: Document 06/02/18 13:45 DCW (Rec: 06/02/18 14:21 DCW [id number]) Physical Therapy Assessment Impairments Impairments Activity Tolerance Pain ROM Soft Tissue Mobility Strength Goals Five Impairment Apley Scratch Test Hardware Developer Goal (LTG) Internal Rotation position to T10 External Rotation position to T4 LTG Duration 06/05/18 Four Impairment Shoulder Strength Short Term Goal (STG) R UE MMT to 3+/5 STG Duration Met Senior Living Goal (LTG) R UE MMT to 4/5 LTG Duration 06/05/18 Three Impairment Range of Motion Short Term Goal (STG) Right shoulder AROM to 90? flexion and 90? abduction STG Duration Met Senior Living Goal (LTG) Right shoulder AROM to 120? flexion and 120? abduction LTG Duration 06/05/18 Two Impairment News Agent Strength Hardware Developer Goal (LTG) Right chief lock tender operator strength to 40 lbs LTG Duration 06/05/18 One Impairment Activity Participation Short Term Goal (STG) Pt to report ability to open jars with no difficulty STG Duration 05/17/18 Senior Living Goal (LTG) Pt to use right hand to perform hair care LTG Duration 06/05/18 Assessment Summary Assessment Pt doing well, patient and therapist feel confident pt will do well progressing to independent HEP following her next appointment next week. Physical Therapy Plan Frequency and Duration Frequency of Treatment 2x/Week Duration of Treatment 10 weeks Plan of Care Start Date 04/26/18 Plan of Care End Date 07/05/18 Therapeutic Interventions Therapeutic Interventions Aquatic Therapy Home Exercise Program Joint Mobilizations Manual Therapy Neuromuscular Re-education Self-Care/Home Management Soft Tissue Mobilization Taping Therapeutic Exercises Modalities Cold Pack/Ice Massage Electric Stimulation Hot Packs Ultrasound Next Visit Focus/Plan Next Note Type Treatment Note Next Visit Plan Continue current POC, Advance as tolerated
--- NOTE | 2018-06-07 15:52 | PT.OTN ---
Current Diagnoses Other postherpetic nervous system involvement (06/07/18) Physical Therapy Treatment Note PT-OP-A Visit Information Start: 04/26/18 15:34 Freq: Status: Active Protocol: Document 06/07/18 15:15 DCW (Rec: 06/07/18 15:52 DCW [id number]) Out-Patient Physical Therapy Visit Information Visit Information Visit Type Treatment Note Visit Note Pt reports until she meets her insurance deductable, she is paying full rojas for her appointments. After discussing the situation, pt would appreciate 30 minute appointments instead of 45 minutes to help offset some of the costs. Visit Start Time 15:15 Visit Stop Time 15:50 Total Visit Minutes 35 Visit Number 8 Number of CATH LAB RADIOLOGY TECHNICIAN Visits 0 Evaluation Information Evaluation Date 04/26/18 PT-OP-B Current Condition Start: 04/26/18 15:34 Freq: Status: Active Protocol: Document 04/26/18 13:45 DCW (Rec: 04/26/18 15:57 DCW [id number]) Current Condition History of Current Condition Onset Date 03/08/18 Current Complaints Right UE weakness and stiffness secondary to shingles History of Current Condition Pt was diagnosed with shingles on 03/08/18. She began experiencing pain down her right arm, which was followed by weakness and immobility. Her symptoms gradually improved, and her nerve pain has gotten to the point where she is beginning to wean off of her gabapentin. She currently still has significantly limited ROM and strength in her right shoulder , and has difficulty with christian science practitioner , opening jars, raising her arm over her head, or lifting anything. Treatment Goals Patient/Caregiver Goals Pt goal is to improve her right arm strength and mobility Prior Functional Status Baseline Function- ADL's Independent Baseline Function- Mobility Independent Baseline Function- Other WNL Current Functional Impairments (Reported) Functional Limitations- ADL's Unable to lift objects to chest height Unable to open jars Unable to lift arm to her hair PT-OP-C Subjective Start: 04/26/18 15:34 Freq: Status: Active Protocol: Document 06/07/18 15:15 DCW (Rec: 06/07/18 15:52 DCW [id number]) OP-PT Subjective Patient Comments Patient Comments Pt reports continued noticeable improvement Patient Reported Progress Improving PT-OP-E Functional Tests Start: 04/26/18 15:57 Freq: Status: Active Protocol: Document 04/26/18 13:45 DCW (Rec: 04/26/18 15:59 DCW [id number]) Functional Tests Apley's Scratch Test Action 1: The subject is instructed to touch the opposite shoulder with his/her hand. This motion checks Glenohumeral adduction, internal rotation , horizontal adduction and scapular protraction Action 2: The subject is instructed to place his/her arm overhead and reach behind the neck to touch his/her upper back. This motion checks Glenohumeral abduction, external rotation and scapular upward rotation and elevation. Action 3: The subject puts his/her hand on the lower back and reaches upward as far as possible. This motion checks glenohumeral adduction, internal rotation and scapular retraction with downward rotation Action 1- Right Reach to lateral opposite shoulder Action 2- Right Reach to C7 Action 3- Right Reach to L4 PT-OP-K Range of Motion Start: 04/26/18 15:34 Freq: Status: Active Protocol: Document 05/23/18 16:45 DCW (Rec: 05/23/18 16:52 DCW [id number]) Shoulder Goniometric Range of Motion Shoulder Measured in Degrees Right Passive Shoulder ROM WFL No Testing Position Sitting Flexion 170 Abduction 180 Right Active Shoulder ROM WFL No Testing Position Sitting Flexion 114 Abduction 148 PT-OP-M Strength Start: 04/26/18 15:34 Freq: Status: Active Protocol: Document 05/23/18 16:45 DCW (Rec: 05/23/18 16:54 DCW [id number]) Shoulder Strength Shoulder Manual Muscle Testing Right Flexion 4- Good- Abduction (C5) 4- Good- External Rotation 3+ Fair+ Internal Rotation 4 Good PT-OP-Q Treatments Start: 04/26/18 15:34 Freq: Status: Active Protocol: Document 06/07/18 15:15 DCW (Rec: 06/07/18 15:52 DCW [id number]) Cardio Equipment Upper Body Ergometer (UBE) Duration (Minutes) 5 RPM 60 Seat Position 11 Height 5 Other Right arm only Gym Equipment Shuttle Rebound 1 Exercise Details Green ball toss Reps/Duration 4' Therapeutic Ball 2 Exercise Details Supine ball hold vs perturbations Ball Size/Color Blue - 45 cm Body Position Supine Therapeutic Exercises Supine Exercises 1 Supine Exercise Name serratus punch Resistance 10# Reps/Minutes wand Standing Exercises 9 Standing Exercise Name Shoulder Abduction Side bilateral Resistance 5# Equipment Used dumbells 8 Standing Exercise Name Shoulder press Side bilateral Resistance 10# Equipment Used Wand 5 Standing Exercise Name Shoulder Flexion Side bilateral Resistance 10# Equipment Used Wand Manual Therapy Treatment Joint Mobilizations 1 Joint GH Direction distraction, inf, post Grade III Manual Techniques 2 Type Passive ROM stretching of GH joint Body Position Sitting PT-OP-T Assessment and Plan Start: 04/26/18 15:34 Freq: Status: Active Protocol: Document 06/07/18 15:15 DCW (Rec: 06/07/18 15:52 DCW [id number]) Physical Therapy Assessment Impairments Impairments Activity Tolerance Pain ROM Soft Tissue Mobility Strength Goals Five Impairment Apley Scratch Test Senior Care Goal (LTG) Internal Rotation position to T10 External Rotation position to T4 LTG Duration 06/05/18 Four Impairment Shoulder Strength Short Term Goal (STG) R UE MMT to 3+/5 STG Duration Met Senior Care Goal (LTG) R UE MMT to 4/5 LTG Duration 06/05/18 Three Impairment Range of Motion Short Term Goal (STG) Right shoulder AROM to 90? flexion and 90? abduction STG Duration Met Senior Care Goal (LTG) Right shoulder AROM to 120? flexion and 120? abduction LTG Duration 06/05/18 Two Impairment Packager Machine Strength Flooring Professional Goal (LTG) Right christian science practitioner strength to 40 lbs LTG Duration 06/05/18 One Impairment Activity Participation Short Term Goal (STG) Pt to report ability to open jars with no difficulty STG Duration 05/17/18 Senior Care Goal (LTG) Pt to use right hand to perform hair care LTG Duration 06/05/18 Assessment Summary Assessment Patient ROM largely WNL, although still significantly limited with her strength. Pt at this time would like to try independent HEP , and as she has not further visits scheduled at this time, reports she will call within the next month if she decided she needs continued therapy. Physical Therapy Plan Frequency and Duration Frequency of Treatment 2x/Week Duration of Treatment 10 weeks Plan of Care Start Date 04/26/18 Plan of Care End Date 07/05/18 Therapeutic Interventions Therapeutic Interventions Aquatic Therapy Home Exercise Program Joint Mobilizations Manual Therapy Neuromuscular Re-education Self-Care/Home Management Soft Tissue Mobilization Taping Therapeutic Exercises Modalities Cold Pack/Ice Massage Electric Stimulation Hot Packs Ultrasound Next Visit Focus/Plan Next Note Type Treatment Note Next Visit Plan Continue current POC, Advance as tolerated
--- NOTE | 2018-08-21 11:42 | PT.OPDS ---
Current Diagnoses Other postherpetic nervous system involvement (06/07/18) Provider Visit Care Team Role Provider Type Riya Butt DO Attending Provider Physician Primary Care Provider Specialty: [facility] Address: [address] [place] [address], [facility] Email: [email or web address] Visit Number Visit Number 8 Discharge Summary PT-OP-B Current Condition Start: 04/26/18 15:34 Freq: Status: Active Protocol: Document 04/26/18 13:45 DCW (Rec: 04/26/18 15:57 DCW [id number]) Current Condition History of Current Condition Onset Date 03/08/18 Current Complaints Right UE weakness and stiffness secondary to shingles History of Current Condition Pt was diagnosed with shingles on 03/08/18. She began experiencing pain down her right arm, which was followed by weakness and immobility. Her symptoms gradually improved, and her nerve pain has gotten to the point where she is beginning to wean off of her gabapentin. She currently still has significantly limited ROM and strength in her right shoulder , and has difficulty with lens coater , opening jars, raising her arm over her head, or lifting anything. Treatment Goals Patient/Caregiver Goals Pt goal is to improve her right arm strength and mobility Prior Functional Status Baseline Function- ADL's Independent Baseline Function- Mobility Independent Baseline Function- Other WNL Current Functional Impairments (Reported) Functional Limitations- ADL's Unable to lift objects to chest height Unable to open jars Unable to lift arm to her hair PT-OP-C Subjective Start: 04/26/18 15:34 Freq: Status: Active Protocol: Document 06/07/18 15:15 DCW (Rec: 06/07/18 15:52 DCW [id number]) OP-PT Subjective Patient Comments Patient Comments Pt reports continued noticeable improvement Patient Reported Progress Improving PT-OP-E Functional Tests Start: 04/26/18 15:57 Freq: Status: Active Protocol: Document 04/26/18 13:45 DCW (Rec: 04/26/18 15:59 DCW [id number]) Functional Tests Kwameey's Scratch Test Action 1: The subject is instructed to touch the opposite shoulder with his/her hand. This motion checks Glenohumeral adduction, internal rotation , horizontal adduction and scapular protraction Action 2: The subject is instructed to place his/her arm overhead and reach behind the neck to touch his/her upper back. This motion checks Glenohumeral abduction, external rotation and scapular upward rotation and elevation. Action 3: The subject puts his/her hand on the lower back and reaches upward as far as possible. This motion checks glenohumeral adduction, internal rotation and scapular retraction with downward rotation Action 1- Right Reach to lateral opposite shoulder Action 2- Right Reach to C7 Action 3- Right Reach to L4 PT-OP-K Range of Motion Start: 04/26/18 15:34 Freq: Status: Active Protocol: Document 05/23/18 16:45 DCW (Rec: 05/23/18 16:52 DCW [id number]) Shoulder Goniometric Range of Motion Shoulder Measured in Degrees Right Passive Shoulder ROM WFL No Testing Position Sitting Flexion 170 Abduction 180 Right Active Shoulder ROM WFL No Testing Position Sitting Flexion 114 Abduction 148 PT-OP-M Strength Start: 04/26/18 15:34 Freq: Status: Active Protocol: Document 05/23/18 16:45 DCW (Rec: 05/23/18 16:54 DCW [id number]) Shoulder Strength Shoulder Manual Muscle Testing Right Flexion 4- Good- Abduction (C5) 4- Good- External Rotation 3+ Fair+ Internal Rotation 4 Good PT-OP-T Assessment and Plan Start: 04/26/18 15:34 Freq: Status: Active Protocol: Document 08/21/18 11:40 DCW (Rec: 08/21/18 11:42 DCW [id number]) Physical Therapy Assessment Goals Five Impairment Apley Scratch Test Refinisher Goal (LTG) Internal Rotation position to T10 External Rotation position to T4 LTG Duration 06/05/18 Four Impairment Shoulder Strength Short Term Goal (STG) R UE MMT to 3+/5 STG Duration Met Refinisher Goal (LTG) R UE MMT to 4/5 LTG Duration 06/05/18 Three Impairment Range of Motion Short Term Goal (STG) Right shoulder AROM to 90? flexion and 90? abduction STG Duration Met Longterm Goal (LTG) Right shoulder AROM to 120? flexion and 120? abduction LTG Duration 06/05/18 Two Impairment Enterprise Architect Strength Longterm Goal (LTG) Right lens coater strength to 40 lbs LTG Duration 06/05/18 One Impairment Activity Participation Short Term Goal (STG) Pt to report ability to open jars with no difficulty STG Duration 05/17/18 Refinisher Goal (LTG) Pt to use right hand to perform hair care LTG Duration 06/05/18 Physical Therapy Plan Discharge Physical Therapy Discharge Reasons No Longer Attending PT Discharge Comments At pt's most recent appointment, she had no further visits scheduled at this time, felt she was doing well enough for an independent HEP, and noted she would call within the next month if she decided she needs continued therapy. Pt has now not been seen in more than two months, and has not further visits scheduled. Pt will be discharged from skilled therapy at this time.
== END 2018-08-24 15:20 ==
LOC: PHYS 15:15
PROVIDERS: PCP Family Medicine; Visit Provider Family Medicine
DX: B02.29 Other postherpetic nervous system involvement (principal)
CPT/HCPCS: 97110; 97140; 97161

== ENCOUNTER 2019-05-03 09:00 | Outpatient (RCR) | payer OTHER, SELFPAY ==
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
--- NOTE | 2019-04-17 09:45 | PT.OPPOC ---
Current Diagnoses Pain in left hip (04/19/19) Stiffness of left hip, not elsewhere classified (04/19/19) Pain in left leg (04/19/19) Other abnormalities of gait and mobility (04/19/19) Weakness (04/19/19) Strain of muscle, fascia and tendon of left hip, initial encounter (04/19/19) Provider Visit Care Team Role Provider Type ROB Anders Attending Provider Non-Staff Primary Care Provider Specialty: Medical Address: [address] [place] [address], [facility] Email: Plan Of Care PT-OP-T Assessment and Plan Start: 04/17/19 18:58 Freq: Status: Active Protocol: Document 04/17/19 09:45 DLM (Rec: 04/17/19 19:04 DLM [id number]) Physical Therapy Assessment Rehab Potential Rehabilitation Potential Good Evaluation Complexity Number of Personal Factors/Comorbidities 1-2 Number of Body Systems Impaired 4 or More Clinical Presentation at Evaluation Evolving Impairments Impairments Activity Tolerance Balance Functional Activities Functional Mobility Gait Pain ROM Soft Tissue Mobility Strength Other Concerns Barriers to Rehabilitation Financial limitations Goals Three Impairment Impaired gait Pattern Short Term Goal (STG) Normalize gait pattern STG Duration 2 weeks Paint Laboratory Technician Goal (LTG) Pt will return to walking for exercise without increased hip /knee pain LTG Duration 4 weeks Two Impairment Decreased ROM left hip Paint Laboratory Technician Goal (LTG) Increased left hip AROM to be equal to right LTG Duration 4 weeks One Impairment pain 4/10 Paint Laboratory Technician Goal (LTG) Decrease left hip/knee pain to 1/10 and intermittent LTG Duration 4 weeks Assessment Summary Assessment She presents with left hip strain/sprain with a suspected underlying arthritis. Etiology for the strain is not clear. Her symptoms have started to improve. Her left hip pain can be provoked with AROM. Difficulty provoking the knee pain this visit and it may be referred from the hip. She is a good candidate for physical therapy for the above deficits. The frequency of her treatment will be limited due to the high financial burden of her high deductible insurance plan. She is motivated to have a HEP to continue to manage her hip at home. Physical Therapy Plan Frequency and Duration Frequency of Treatment 1x/Week Duration of Treatment 4 weeks Plan of Care Start Date 04/17/19 Plan of Care End Date 05/13/19 Therapeutic Interventions Therapeutic Interventions Home Exercise Program Joint Mobilizations Manual Therapy Patient/Caregiver Education Self-Care/Home Management Soft Tissue Mobilization Therapeutic Activities Therapeutic Exercises Modalities Cold Pack/Ice Massage Electric Stimulation Hot Packs Ultrasound Next Visit Focus/Plan Next Note Type Treatment Note Next Visit Plan one more visit this week to further establish HEP Plan of Care Dates Plan of Care Start Date 04/17/19 Plan of Care End Date 05/13/19 Please Sign and Return: I have reviewed this Plan of Care and certify that the skilled therapy services above are required to meet the patient?s needs. Physician Signature Date Printed Name and Credentials C
--- NOTE | 2019-04-19 09:45 | PT.OTN ---
Current Diagnoses Pain in left hip (04/19/19) Stiffness of left hip, not elsewhere classified (04/19/19) Pain in left leg (04/19/19) Other abnormalities of gait and mobility (04/19/19) Weakness (04/19/19) Strain of muscle, fascia and tendon of left hip, initial encounter (04/19/19) Physical Therapy Treatment Note PT-OP-A Visit Information Start: 04/17/19 18:58 Freq: Status: Active Protocol: Document 04/19/19 09:45 DLM (Rec: 04/20/19 18:21 DLM [id number]) Out-Patient Physical Therapy Visit Information Visit Information Visit Type Treatment Note Visit Start Time 09:45 Visit Stop Time 10:30 Total Visit Minutes 45 Visit Number 2 Number of ACCOUNTING MANAGER CPA Visits 0 Evaluation Information Evaluation Date 04/17/19 PT-OP-B Current Condition Start: 04/17/19 18:58 Freq: Status: Active Protocol: Document 04/17/19 09:45 DLM (Rec: 04/20/19 17:50 DLM [id number]) Current Condition History of Current Condition Onset Date Nov 2018 Current Complaints left hip and knee pain History of Current Condition In Nov she started having pain in left hip and knee. The pain was the worst in her lateral hip area. The pain progressively got worse and she had burning in her ankle. Lately the pain is a little better. She no longer has any symptoms in her left ankle. She continues to have pain in her left hip and knee. Treatment Goals Patient/Caregiver Goals Be able to return to walking for exercise without hip/knee pain. Return to regular exercise routine at home without hip/ knee pain. 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 She can stand for 15-20 min before getting tired and needing to sit. 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 High deductible insurance plan so she has a high financial burden with cost of therapy. PT-OP-C Subjective Start: 04/17/19 18:58 Freq: Status: Active Protocol: Document 04/19/19 09:45 DLM (Rec: 04/20/19 18:21 DLM [id number]) OP-PT Subjective Patient Comments Patient Comments She has not gotten a walking stick/cane yet but she plans to get one. No left knee pain today. Patient Reported Progress Same PT-OP-D Balance Start: 04/17/19 18:58 Freq: Status: Active Protocol: Document 04/17/19 09:45 DLM (Rec: 04/20/19 17:37 DLM [id number]) Balance Tests Single Limb Standing Single Limb- Right greater than 20 sec Single Limb- Left greater than 20 sec but increased sway PT-OP-G Mobility & Gait Start: 04/17/19 18:58 Freq: Status: Active Protocol: Document 04/17/19 09:45 DLM (Rec: 04/20/19 17:36 DLM [id number]) OP Mobility Evaluation Bed Mobility Rolling independent Supine to and from Sit independent OP Gait Assessment Gait Gait Assistance Required: Independent Assistive Devices Assistive Device None Gait Deviations General Gait Pattern Antalgic Decreased Stride Length Factors Limiting Gait Function Factors Limiting Gait Function Decreased Activity Tolerance Decreased Strength Limited Range of Motion Pain PT-OP-J Posture/Palpation/Skin Start: 04/17/19 18:58 Freq: Status: Active Protocol: Document 04/17/19 09:45 DLM (Rec: 04/20/19 17:38 DLM [id number]) Palpation Assessment Location Two Palpation Location lumbar spine, paraspinals Palpation Findings Soft Tissue Tightness Palpation Details left side tighter than right, lumbar rotated left in prone One Palpation Location left gluteal area Palpation Findings Soft Tissue Tightness Tenderness PT-OP-K Range of Motion Start: 04/17/19 18:58 Freq: Status: Active Protocol: Document 04/17/19 09:45 DLM (Rec: 04/20/19 17:32 DLM [id number]) Lumbar Spine Range of Motion Lumbar Spine Active Percentage Testing Position Standing Flexion 90 Extension 90 Rotation Left 80 Rotation Right 80 Lateral Flexion Left 80 Lateral Flexion Right 80 ROM Limitations Soft Tissue Tightness Comments she deviates right with trunk flexion Hip Goniometric Range of Motion Hip Measured in Degrees Right Active Extension 10 Abduction 27 Internal Rotation 18 External Rotation 27 Left Active Extension 8 Abduction 12 Internal Rotation 7 External Rotation 15 Hip ROM Limitations Comments hip extension measured in prone, pain with left hip ER, hip flexion AROM is WNL bilaterally, intermittent crepitus left hip with AROM PT-OP-L Special Tests Start: 04/17/19 18:58 Freq: Status: Active Protocol: Document 04/17/19 09:45 DLM (Rec: 04/20/19 17:35 DLM [id number]) Special Tests Hip Special Tests Oneal's Compression Test Results negative Scour Test Test Results negative RAFIQ Test Results negative PT-OP-M Strength Start: 04/17/19 18:58 Freq: Status: Active Protocol: Document 04/17/19 09:45 DLM (Rec: 04/20/19 17:11 DLM [id number]) Hip Strength Hip Manual Muscle Testing Right Flexion (L2) 4 Good Extension (S1) 4 Good Abduction 5 Normal Adduction 5 Normal External Rotation 5 Normal Internal Rotation 4+ Good+ Left Flexion (L2) 4+ Good+ Extension (S1) 4+ Good+ Abduction 5 Normal Adduction 5 Normal External Rotation 4+ Good+ Internal Rotation 4 Good Reason Not Measured Pain Comments pain with resisted flexion, extension and external rotation Knee Strength Knee Manual Muscle Testing Bilateral Flexion (S2) 5 Normal Extension (L3) 5 Normal PT-OP-Q Treatments Start: 04/17/19 18:58 Freq: Status: Active Protocol: Document 04/19/19 09:45 DLM (Rec: 04/20/19 18:21 DLM [id number]) Therapeutic Exercises Supine Exercises 3 Supine Exercise Name Bridging Side bilateral Reps/Minutes x 10 reps 2 Supine Exercise Name hip ER stretch hooklying Side bilateral Reps/Minutes 30 sec hold x 3 reps Comments ankle over knee and push down 1 Supine Exercise Name Hooklying hip adductor stretch Side bilateral Reps/Minutes 30 hold x 3 reps Comments drop knees out to sides, frog stretch Prone Exercises 2 Prone Exercise Name hip extension, knee straight Side bilateral Resistance active Reps/Minutes 10 reps each 1 Prone Exercise Name Hip IR/ER Side bilateral Resistance active Reps/Minutes 10 reps each Sidelying Exercises 1 Sidelying Exercise Name Clamshells Side bilateral Reps/Minutes 10 reps each Sitting Exercises 1 Sitting Exercise Name HS stretch Side bilateral Reps/Minutes 30 sec hold x 3 reps each Comments single limb edge of mat table Standing Exercises 1 Standing Exercise Name Hip ABduction and Extension Side bilateral Reps/Minutes x 10 reps each Comments With UE support Self-Care/Home Management Treatment Education Patient Education Home Exercise Program Pain Management Other Education provided written HEP, reviewed her prior home exercises and made modifications to manage her pain PT-OP-T Assessment and Plan Start: 04/17/19 18:58 Freq: Status: Active Protocol: Document 04/19/19 09:45 DLM (Rec: 04/20/19 18:21 DLM [id number]) Physical Therapy Assessment Goals Three Impairment Impaired gait Pattern Short Term Goal (STG) Normalize gait pattern STG Duration 2 weeks Fdc Goal (LTG) Pt will return to walking for exercise without increased hip /knee pain LTG Duration 4 weeks Two Impairment Decreased ROM left hip Fdc Goal (LTG) Increased left hip AROM to be equal to right LTG Duration 4 weeks One Impairment pain 4/10 Insurance Territory Manager Goal (LTG) Decrease left hip/knee pain to 1/10 and intermittent LTG Duration 4 weeks Assessment Summary Assessment She tolerated her exercises well today. Less knee pain today. No increase in her hip pain with her exercises. Continue to suspect the knee pain is referred from her hip but will continue to monitor it. Pt plans to start walking at home with walking stick/ cane to manage her pain. Physical Therapy Plan Frequency and Duration Frequency of Treatment 1x/Week Duration of Treatment 4 weeks Plan of Care Start Date 04/17/19 Plan of Care End Date 05/13/19 Therapeutic Interventions Therapeutic Interventions Home Exercise Program Joint Mobilizations Manual Therapy Patient/Caregiver Education Self-Care/Home Management Soft Tissue Mobilization Therapeutic Activities Therapeutic Exercises Modalities Cold Pack/Ice Massage Electric Stimulation Hot Packs Ultrasound Next Visit Focus/Plan Next Note Type Treatment Note Next Visit Plan Advance her exercises, assess for joint mobs and STM
--- NOTE | 2019-05-03 09:00 | PT.OTN ---
Current Diagnoses Pain in left hip (05/03/19) Stiffness of left hip, not elsewhere classified (05/03/19) Pain in left leg (05/03/19) Other abnormalities of gait and mobility (05/03/19) Weakness (05/03/19) Strain of muscle, fascia and tendon of left hip, initial encounter (05/03/19) Physical Therapy Treatment Note PT-OP-A Visit Information Start: 04/17/19 18:58 Freq: Status: Active Protocol: Document 05/03/19 09:00 DLM (Rec: 05/03/19 18:59 DLM [id number]) Out-Patient Physical Therapy Visit Information Visit Information Visit Type Treatment Note Visit Note high deductible insurance plan so pt wants to limit visits Visit Start Time 09:00 Visit Stop Time 09:44 Total Visit Minutes 44 Visit Number 3 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 The pain was the worst in her lateral hip area. The pain progressively got worse and she had burning in her ankle. Lately the pain is a little better. She no longer has any symptoms in her left ankle. She continues to have pain in her left hip and knee. Treatment Goals Patient/Caregiver Goals Be able to return to walking for exercise without hip/knee pain. Return to regular exercise routine at home without hip/ knee pain. 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 She can stand for 15-20 min before getting tired and needing to sit. 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 High deductible insurance plan so she has a high financial burden with cost of therapy. PT-OP-C Subjective Start: 04/17/19 18:58 Freq: Status: Active Protocol: Document 05/03/19 09:00 DLM (Rec: 05/03/19 18:59 DLM [id number]) OP-PT Subjective Patient Comments Patient Comments The walking stick has really helped. She has been doing her exercises at home. Patient Reported Progress Improving OP-PT Pain Assessment Location Left Hip Pain Location Details intermittent in left knee Intensity 3 Scale Used Numeric (1 - 10) Description Aching Frequency Intermittent PT-OP-D Balance Start: 04/17/19 18:58 Freq: Status: Active Protocol: Document 04/17/19 09:45 DLM (Rec: 04/20/19 17:37 DLM [id number]) Balance Tests Single Limb Standing Single Limb- Right greater than 20 sec Single Limb- Left greater than 20 sec but increased sway PT-OP-G Mobility & Gait Start: 04/17/19 18:58 Freq: Status: Active Protocol: Document 04/17/19 09:45 DLM (Rec: 04/20/19 17:36 DLM [id number]) OP Mobility Evaluation Bed Mobility Rolling independent Supine to and from Sit independent OP Gait Assessment Gait Gait Assistance Required: Independent Assistive Devices Assistive Device None Gait Deviations General Gait Pattern Antalgic Decreased Stride Length Factors Limiting Gait Function Factors Limiting Gait Function Decreased Activity Tolerance Decreased Strength Limited Range of Motion Pain PT-OP-J Posture/Palpation/Skin Start: 04/17/19 18:58 Freq: Status: Active Protocol: Document 04/17/19 09:45 DLM (Rec: 04/20/19 17:38 DLM [id number]) Palpation Assessment Location Two Palpation Location lumbar spine, paraspinals Palpation Findings Soft Tissue Tightness Palpation Details left side tighter than right, lumbar rotated left in prone One Palpation Location left gluteal area Palpation Findings Soft Tissue Tightness Tenderness PT-OP-K Range of Motion Start: 04/17/19 18:58 Freq: Status: Active Protocol: Document 04/17/19 09:45 DLM (Rec: 04/20/19 17:32 DLM [id number]) Lumbar Spine Range of Motion Lumbar Spine Active Percentage Testing Position Standing Flexion 90 Extension 90 Rotation Left 80 Rotation Right 80 Lateral Flexion Left 80 Lateral Flexion Right 80 ROM Limitations Soft Tissue Tightness Comments she deviates right with trunk flexion Hip Goniometric Range of Motion Hip Right Active Extension 10 Abduction 27 Internal Rotation 18 External Rotation 27 Left Active Extension 8 Abduction 12 Internal Rotation 7 External Rotation 15 Hip ROM Limitations Comments hip extension measured in prone, pain with left hip ER, hip flexion AROM is WNL bilaterally, intermittent crepitus left hip with AROM PT-OP-L Special Tests Start: 04/17/19 18:58 Freq: Status: Active Protocol: Document 04/17/19 09:45 DLM (Rec: 04/20/19 17:35 DLM [id number]) Special Tests Hip Special Tests Oneal's Compression Test Results negative Scour Test Test Results negative RAFIQ Test Results negative PT-OP-M Strength Start: 04/17/19 18:58 Freq: Status: Active Protocol: Document 04/17/19 09:45 DLM (Rec: 04/20/19 17:11 DLM [id number]) Hip Strength Hip Manual Muscle Testing Right Flexion (L2) 4 Good Extension (S1) 4 Good Abduction 5 Normal Adduction 5 Normal External Rotation 5 Normal Internal Rotation 4+ Good+ Left Flexion (L2) 4+ Good+ Extension (S1) 4+ Good+ Abduction 5 Normal Adduction 5 Normal External Rotation 4+ Good+ Internal Rotation 4 Good Reason Not Measured Pain Comments pain with resisted flexion, extension and external rotation Knee Strength Knee Manual Muscle Testing Bilateral Flexion (S2) 5 Normal Extension (L3) 5 Normal PT-OP-Q Treatments Start: 04/17/19 18:58 Freq: Status: Active Protocol: Document 05/03/19 09:00 DLM (Rec: 05/03/19 18:59 DLM [id number]) Therapeutic Exercises Supine Exercises 3 Supine Exercise Name Bridging Side bilateral Reps/Minutes x 10 reps Comments educ on how to advance this ex when ready 2 Supine Exercise Name hip ER stretch hooklying Side bilateral Reps/Minutes 30 sec hold x 3 reps Comments ankle over knee and push down 1 Supine Exercise Name Hooklying hip adductor stretch Side bilateral Reps/Minutes 30 hold x 3 reps Comments drop knees out to sides, frog stretch Prone Exercises 3 Prone Exercise Name Knee flexion Side bilateral Resistance 2# Reps/Minutes 10 reps each LE 2 Prone Exercise Name hip extension, knee straight Side bilateral Resistance active Reps/Minutes 10 reps each Comments alternating LE's 1 Prone Exercise Name Hip IR/ER Side bilateral Resistance 2# Reps/Minutes 10 reps each Sidelying Exercises 1 Sidelying Exercise Name Clamshells Side bilateral Reps/Minutes 10 reps each Sitting Exercises 1 Sitting Exercise Name HS stretch Side bilateral Reps/Minutes 30 sec hold x 3 reps each Comments single limb edge of mat table Standing Exercises 2 Standing Exercise Name Single limb standing Side left Reps/Minutes 3 reps 1 Standing Exercise Name Hip ABduction and Extension Side bilateral Reps/Minutes x 10 reps each Comments With UE support, not read for added wt Self-Care/Home Management Treatment Education Patient Education Home Exercise Program Pain Management Other Education reviewed HEP PT-OP-T Assessment and Plan Start: 04/17/19 18:58 Freq: Status: Active Protocol: Document 05/03/19 09:00 DLM (Rec: 05/03/19 18:59 DLM [id number]) Physical Therapy Assessment Goals Three Impairment Impaired gait Pattern Short Term Goal (STG) Normalize gait pattern STG Duration 2 weeks Television Equipment Operator Goal (LTG) Pt will return to walking for exercise without increased hip /knee pain LTG Duration 4 weeks Two Impairment Decreased ROM left hip Television Equipment Operator Goal (LTG) Increased left hip AROM to be equal to right LTG Duration 4 weeks One Impairment pain 4/10 Television Equipment Operator Goal (LTG) Decrease left hip/knee pain to 1/10 and intermittent LTG Duration 4 weeks Progress Towards Goals Progress Towards Goals Progressing Toward Goals Assessment Summary Assessment She tolerated her exercises well. Noted increased left knee pain when hip abductors stressed, romie ITB. Gait pattern continues to improve. Pt wants to limit her visits to once a week or every other week due to her high cost of visits. Physical Therapy Plan Frequency and Duration Frequency of Treatment 1x/Week Duration of Treatment 4 weeks Plan of Care Start Date 04/17/19 Plan of Care End Date 05/13/19 Therapeutic Interventions Therapeutic Interventions Home Exercise Program Joint Mobilizations Manual Therapy Patient/Caregiver Education Self-Care/Home Management Soft Tissue Mobilization Therapeutic Activities Therapeutic Exercises Modalities Cold Pack/Ice Massage Electric Stimulation Hot Packs Ultrasound Next Visit Focus/Plan Next Note Type Treatment Note Next Visit Plan Advance her exercises, assess for joint mobs and STM
--- NOTE | 2019-07-11 08:46 | PT.OPDS ---
Current Diagnoses Pain in left hip (05/03/19) Stiffness of left hip, not elsewhere classified (05/03/19) Pain in left leg (05/03/19) Other abnormalities of gait and mobility (05/03/19) Weakness (05/03/19) Strain of muscle, fascia and tendon of left hip, initial encounter (05/03/19) Visit Care Team Role Provider Type ROB Anders Attending Provider Non-Staff Primary Care Provider Specialty: Medical Address: [address] [place] [address], [facility] Email: Visit Number Visit Number 3 Discharge Summary PT-OP-B Current Condition Start: 04/17/19 18:58 Freq: Status: Active Protocol: Document 04/17/19 09:45 DLM (Rec: 04/20/19 17:50 DLM [id number]) Current Condition History of Current Condition Onset Date Nov 2018 Current Complaints left hip and knee pain History of Current Condition In Nov she started having pain in left hip and knee. The pain was the worst in her lateral hip area. The pain progressively got worse and she had burning in her ankle. Lately the pain is a little better. She no longer has any symptoms in her left ankle. She continues to have pain in her left hip and knee. Treatment Goals Patient/Caregiver Goals Be able to return to walking for exercise without hip/knee pain. Return to regular exercise routine at home without hip/ knee pain. 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 She can stand for 15-20 min before getting tired and needing to sit. 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 High deductible insurance plan so she has a high financial burden with cost of therapy. PT-OP-C Subjective Start: 04/17/19 18:58 Freq: Status: Active Protocol: Document 05/03/19 09:00 DLM (Rec: 05/03/19 18:59 DLM [id number]) OP-PT Subjective Patient Comments Patient Comments The walking stick has really helped. She has been doing her exercises at home. Patient Reported Progress Improving OP-PT Pain Assessment Location Left Hip Pain Location Details intermittent in left knee Intensity 3 Scale Used Numeric (1 - 10) Description Aching Frequency Intermittent PT-OP-D Balance Start: 04/17/19 18:58 Freq: Status: Active Protocol: Document 04/17/19 09:45 DLM (Rec: 04/20/19 17:37 DLM [id number]) Balance Tests Single Limb Standing Single Limb- Right greater than 20 sec Single Limb- Left greater than 20 sec but increased sway PT-OP-G Mobility & Gait Start: 04/17/19 18:58 Freq: Status: Active Protocol: Document 04/17/19 09:45 DLM (Rec: 04/20/19 17:36 DLM [id number]) OP Mobility Evaluation Bed Mobility Rolling independent Supine to and from Sit independent OP Gait Assessment Gait Gait Assistance Required: Independent Assistive Devices Assistive Device None Gait Deviations General Gait Pattern Antalgic,Decreased Stride Length Factors Limiting Gait Function Factors Limiting Gait Function Decreased Activity Tolerance, Decreased Strength,Limited Range of Motion,Pain PT-OP-J Posture/Palpation/Skin Start: 04/17/19 18:58 Freq: Status: Active Protocol: Document 04/17/19 09:45 DLM (Rec: 04/20/19 17:38 DLM [id number]) Palpation Assessment Location Two Palpation Location lumbar spine, paraspinals Palpation Findings Soft Tissue Tightness Palpation Details left side tighter than right, lumbar rotated left in prone One Palpation Location left gluteal area Palpation Findings Soft Tissue Tightness, Tenderness PT-OP-K Range of Motion Start: 04/17/19 18:58 Freq: Status: Active Protocol: Document 04/17/19 09:45 DLM (Rec: 04/20/19 17:32 DLM [id number]) Lumbar Spine Range of Motion Lumbar Spine Active Percentage Testing Position Standing Flexion 90 Extension 90 Rotation Left 80 Rotation Right 80 Lateral Flexion Left 80 Lateral Flexion Right 80 ROM Limitations Soft Tissue Tightness Comments she deviates right with trunk flexion Hip Goniometric Range of Motion Hip Right Active Extension 10 Abduction 27 Internal Rotation 18 External Rotation 27 Left Active Extension 8 Abduction 12 Internal Rotation 7 External Rotation 15 Hip ROM Limitations Comments hip extension measured in prone, pain with left hip ER, hip flexion AROM is WNL bilaterally, intermittent crepitus left hip with AROM PT-OP-L Special Tests Start: 04/17/19 18:58 Freq: Status: Active Protocol: Document 04/17/19 09:45 DLM (Rec: 04/20/19 17:35 DLM [id number]) Special Tests Hip Special Tests Oneal's Compression Test Results negative Scour Test Test Results negative RAFIQ Test Results negative PT-OP-M Strength Start: 04/17/19 18:58 Freq: Status: Active Protocol: Document 04/17/19 09:45 DLM (Rec: 04/20/19 17:11 DLM [id number]) Hip Strength Hip Manual Muscle Testing Right Flexion (L2) 4 Good Extension (S1) 4 Good Abduction 5 Normal Adduction 5 Normal External Rotation 5 Normal Internal Rotation 4+ Good+ Left Flexion (L2) 4+ Good+ Extension (S1) 4+ Good+ Abduction 5 Normal Adduction 5 Normal External Rotation 4+ Good+ Internal Rotation 4 Good Reason Not Measured Pain Comments pain with resisted flexion, extension and external rotation Knee Strength Knee Manual Muscle Testing Bilateral Flexion (S2) 5 Normal Extension (L3) 5 Normal PT-OP-T Assessment and Plan Start: 04/17/19 18:58 Freq: Status: Active Protocol: Document 07/11/19 08:43 SAK (Rec: 07/11/19 08:46 SAK [id number]) Physical Therapy Plan Discharge Physical Therapy Discharge Reasons Patient Request
== END 2019-07-11 13:41 | disposition home or self-care (01) ==
LOC: PHYS 09:00
PROVIDERS: PCP Nurse Practitioner Family; Visit Provider Nurse Practitioner Family
DX: M25.552 Pain in left hip (principal); M79.605 Pain in left leg; S76.012A Strain of muscle, fascia and tendon of left hip, initial encounter; R26.89 Other abnormalities of gait and mobility; M25.652 Stiffness of left hip, not elsewhere classified; R53.1 Weakness
CPT/HCPCS: 97110; 97162

== ENCOUNTER → 2024-10-30 13:57 | Outpatient (CLI) | payer MEDICARE, SELFPAY ==
--- NOTE | 2024-10-30 14:01 | DI.RAD.S_ITS ---
PROCEDURE: XR HIP W PEL IF DONE CÉSAR MIN 4V INDICATIONS: Pain in left hip TECHNIQUE: AP pelvis with lateral view(s) of the bilateral hip(s). COMPARISON: None. FINDINGS: Bones: No fractures or dislocations. Moderate right and severe left hip joint degeneration with joint space narrowing and marginal spurring. Pelvic ring appears intact. No suspicious bony lesions. Soft tissues: The visualized bowel gas pattern is normal. No suspicious soft tissue calcifications. IMPRESSION: Moderate right and severe left hip joint degeneration. Mild flattening of the left femoral head superiorly. Dictated by: Asael Melgoza M.D. on 10/31/2024 at 10:13 Approved by: Asael Melgoza M.D. on 10/31/2024 at 10:14
== END ==
LOC: RAD 13:59
PROVIDERS: PCP Physician Assistant; Referring Provider Physician Assistant; Visit Provider Physician Assistant
DX: M25.552 Pain in left hip (principal); M16.0 Bilateral primary osteoarthritis of hip
CPT/HCPCS: 73522

== ENCOUNTER → 2025-04-04 16:14 | Outpatient (CLI) | payer MEDICARE, SELFPAY ==
--- NOTE | 2025-04-04 16:17 | DI.MG.S_ITS ---
MM screening mammo BI: 04/04/2025. BI-RADS: 2 CLINICAL: 69-year old female for bilateral screening mammogram. Tyrer-Cuzick lifetime risk of 6.0%. No personal or first-degree family history of breast cancer. PRIOR EXAMS: No prior examinations available. MAMMOGRAPHY TECHNIQUE: 2D and 3D (tomosynthesis) digital mammographic views obtained, with additional images as needed for full coverage. Current study was also evaluated with a Computer Aided Detection (CAD) system. DENSITY C. The breasts are heterogeneously dense, which may obscure small masses. MAMMOGRAPHY FINDINGS Bilateral: Benign-appearing calcifications noted. There are no suspicious masses, calcifications, or other findings in the breast. IMPRESSION: * No evidence of malignancy with benign findings. RECOMMENDATIONS Bilateral * Annual screening mammography. OVERALL ASSESSMENT CATEGORY BI-RADS-2: Benign. The [employer] recommends annual screening mammography beginning at age 40 for women with average risk of breast cancer. ELECTRONICALLY SIGNED: Reji Gomez M.D. on 04/05/2025 at 07:39:20 AM PT Interpreting Station ID: [id number]
== END ==
PROVIDERS: PCP Physician Assistant; Referring Provider Physician Assistant; Visit Provider Physician Assistant
DX: Z12.31 Encounter for screening mammogram for malignant neoplasm of breast (principal); R92.333 Mammographic heterogeneous density, bilateral breasts
CPT/HCPCS: 77063; 77067

== ENCOUNTER → 2025-05-13 12:18 | Outpatient (CLI) | payer MEDICARE, SELFPAY ==
--- NOTE | 2025-05-13 12:22 | DI.RAD.S_ITS ---
PROCEDURE: XR KNEE LT 1TO2V INDICATIONS: BLAT KNEE PAIN TECHNIQUE: To views of the knee were acquired. COMPARISON: None. FINDINGS: Bones: No fractures or dislocations. Tricompartmental osteoarthritic changes with osteophytosis and mild medial compartment joint space narrowing. No suspicious bony lesions. Soft tissues: No joint effusion. No suspicious soft tissue calcifications. IMPRESSION: No acute osseous abnormalities. Mild osteoarthritic changes. Dictated by: Asael Melgoza M.D. on 05/13/2025 at 15:35 Approved by: Asael Melgoza M.D. on 05/13/2025 at 15:36
--- NOTE | 2025-05-13 12:22 | DI.RAD.S_ITS ---
PROCEDURE: XR KNEE RT 1TO2V INDICATIONS: BILAT KNEE PAIN TECHNIQUE: 2 views of the knee were acquired. COMPARISON: None. FINDINGS: Bones: No fractures or dislocations. Tricompartmental osteoarthritic changes with osteophytosis and mild joint space narrowing of the medial and lateral tibial femoral compartments. No suspicious bony lesions. Soft tissues: Small joint effusion. No suspicious soft tissue calcifications. IMPRESSION: No acute osseous abnormalities. Mild osteoarthritic changes. Small joint effusion. Dictated by: Asael Melgoza M.D. on 05/13/2025 at 15:37 Approved by: Asael Melgoza M.D. on 05/13/2025 at 15:38
== END ==
LOC: RAD 12:19
PROVIDERS: PCP Physician Assistant
DX: M25.561 Pain in right knee (principal); M25.461 Effusion, right knee
CPT/HCPCS: 73560

== ENCOUNTER → 2025-06-17 12:17 | Outpatient (CLI) | payer MEDICARE, SELFPAY ==
--- NOTE | 2025-06-17 12:18 | DI.RAD.S_ITS ---
PROCEDURE: XR LUMBAR SPINE MIN 4V INDICATIONS: BACK PAIN TECHNIQUE: 5 views of the lumbar spine were acquired, including bilateral oblique views. COMPARISON: None. FINDINGS: Bones: 5 nonrib-bearing vertebrae are present. Reversed S curvature of the thoracolumbar spine, apex at L3. Grade 1 retrolisthesis L2 on L3 and L1 on L2, degenerative. No vertebral body compression fractures. No suspicious bony lesions. Moderate multilevel degenerative disc disease, most prominent at L1-2, L3-4, L5- S1. Diffuse facet arthrosis. Soft tissues: Overlying bowel gas pattern is normal. No suspicious soft tissue calcifications. Oblique images: No pars defects. IMPRESSION: Moderate, multilevel degenerative disc disease and diffuse facet arthrosis. No acute, displaced fracture or traumatic subluxation. Dictated by: Moris Azevedo M.D. on 06/17/2025 at 12:40 Approved by: Moris Azevedo M.D. on 06/17/2025 at 12:42
== END ==
PROVIDERS: PCP Physician Assistant; Referring Provider Physical Medicine & Rehabilitation; Visit Provider Physical Medicine & Rehabilitation
DX: M54.9 Dorsalgia, unspecified (principal); M51.369 Other intervertebral disc degeneration, lumbar region without mention of lumbar back pain or lower extremity pain; M47.816 Spondylosis without myelopathy or radiculopathy, lumbar region
CPT/HCPCS: 72110